=== PATIENT | male | born 1945 | race Caucasian/White ===

== ENCOUNTER → 2016-10-25 | Outpatient (CLI) | payer OTHER ==
--- NOTE | 2016-10-25 16:38 | MRI ---
MR right knee without contrast Indication: Right knee pain and stiffness. Chronic pain. No history of trauma given. Impression: None available. Technique: Multiplanar multi sequence imaging through the right knee without contrast. Findings: There is joint effusion and synovitis. Bone marrow signal is normal. Multi compartment deg enerative change with marginal osteophytes noted. Joint space narrowing is worst in the medial femor otibial joint. The ACL and PCL are intact. There is high signal in the lateral meniscus with fraying of the free ed ge of the posterior horn, without displaced tear. Extensor mechanism is intact. There is complex tear of the posterior horn and body of the medial meniscus see sagittal image [id number] . Near full-thickness radial component of the tear is seen on coronal image 24 with horizontal obliq ue component contacting the inferior surface on coronal image 22. Reactive fluid seen around the intact MCL. The lateral collateral ligamentous complex is intact. There is chondromalacia and cartilage fissuring/thinning of the medial condyle. Chondromalacia and c artilage loss she seen over the patella diffusely worse superiorly and at the median patellar ridge. Subchondral edema is seen at the medial femoral condyle. Nondisplaced subchondral insufficiency frac ture not completely excluded for reactive changes favored. Impression: 1. Complex tear of the posterior horn and body of the medial meniscus with extrusion. 2. Large joint effusion with synovitis. 3. Fraying of the free edge of the posterior horn of the lateral meniscus without displaced tear. 4. Multi compartment degenerative change worse the medial femorotibial compartment with subchondral edema seen. Nondisplaced insufficiency fracture not completely excluded. Radiographic followup recom mended. 5. Semimembranosus tendinosis. Reported By:
== END | disposition home or self-care (01) ==
LOC: RAD 13:42
PROVIDERS: ATTEND Internal Medicine
DX: M25.561 Pain in right knee (principal); S83.231A Complex tear of medial meniscus, current injury, right knee, initial encounter; X58.XXXA Exposure to other specified factors, initial encounter; M65.88 Other synovitis and tenosynovitis, other site; M25.461 Effusion, right knee
CPT/HCPCS: 73721

== ENCOUNTER → 2016-11-15 | Outpatient (CLI) | payer OTHER ==
[2016-11-15 10:37] LABS: BASOPHILS % (AUTO) 0.8 % (0.2-1.0); EOSINOPHILS # (AUTO) 0.1 x10^3/uL (0.0-0.2); EOSINOPHILS % (AUTO) 1.6 % (0.9-2.9); HEMATOCRIT 43.1 % (42.0-54.0); HEMOGLOBIN 14.8 g/dL (13.5-18.0); LYMPHOCYTES # (AUTO) 1.2 X10^3/uL (1.3-2.9); LYMPHOCYTES % (AUTO) 23.8 % (21.0-51.0); MEAN CORPUSCULAR HEMOGLOBIN 30.7 pg (27.0-34.0); MEAN CORPUSCULAR HGB CONC 34.5 g/dL (33.0-35.0); MEAN CORPUSCULAR VOLUME 89.1 fL (80.0-100.0); MEAN PLATELET VOLUME 7.9 fL (7.4-11.0); MONOCYTES # (AUTO) 0.3 x10^3/uL (0.3-0.8); MONOCYTES % (AUTO) 6.4 % (0.0-13.0); NEUTROPHILS # (AUTO) 3.5 x10^3/uL (2.2-4.8); NEUTROPHILS % (AUTO) 67.4 % (42.0-75.0); PLATELET COUNT 200 X10^3/uL (150.0-450.0); RED BLOOD COUNT 4.83 X10^6/uL (4.7-6.0); RED CELL DISTRIBUTION WIDTH 13.4 % (11.6-16.5); WHITE BLOOD COUNT 5.2 X10^3/uL (3.6-10.0)
[2016-11-15 10:50] LABS: ALANINE AMINOTRANSFERASE 39 Units/L (12-78); ALBUMIN 3.5 g/dL (3.4-5.0); ALKALINE PHOSPHATASE 82 Units/L (46-116); ASPARTATE AMINO TRANSFERASE 22 Units/L (15-37); BLOOD UREA NITROGEN 17 mg/dL (7-18); C-REACTIVE PROTEIN < 0.50 mg/L (0-3.0); CALCIUM 8.9 mg/dL (8.5-10.1); CARBON DIOXIDE 30.7 mmol/L (21-32); CHLORIDE 102 mmol/L (98-107); CREATININE 1.31 mg/dL (0.70-1.30); GLUCOSE 101 mg/dL (65-99); SODIUM 138 mmol/L (136-145); TOTAL PROTEIN 7.7 g/dL (6.4-8.2); eGFR BLACK RACES > 60 (>60); eGFR NON BLACK RACES 57 (>60)
[2016-11-15 11:21] LABS: PREALBUMIN 33.7 mg/dL (18-35.7)
[2016-11-15 11:56] LABS: ERYTHROCYTE SEDIMENTATION RATE 12 MM/HOUR (0-15)
== END ==
LOC: LAB 09:45
PROVIDERS: ATTEND Orthopaedic Surgery
DX: M25.561 Pain in right knee (principal); M17.11 Unilateral primary osteoarthritis, right knee; R73.09 Other abnormal glucose
CPT/HCPCS: 36415; 80053; 83036; 84134; 85025; 85652; 86140

== ENCOUNTER → 2017-02-01 | Outpatient (CLI) | payer OTHER ==
[~2017-02-01] MED LIST: NS 100 ML IV 100 ML IV ONE
--- NOTE | 2017-02-01 13:54 | CT ---
HISTORY: Abnormal weight loss Study: CT chest abdomen and pelvis with contrast Comparison: None Technique: Multiple axial images of the chest, abdomen, and pelvis were obtained after the administra tion of IV contrast. Dose reduction techniques including Automated Exposure Control (AEC) and adjust ment of mA and kV were utilized. CT chest findings: There is atherosclerotic disease of the coronary artery is noted. Normal-sized pulmonary arteries. No rmal-sized heart. No pericardial effusion. The aorta appears normal in course and caliber. The lungs are clear without effusion, consolidation, or pneumothorax. Airways are patent. The soft tissues and osseous structures appear intact. CT abdomen and pelvis findings: There are scattered hypodense lesions in the liver suggestive of cysts. The gallbladder is unremarkab le. The spleen, pancreas, kidneys and adrenal glands are unremarkable. No free intraperitoneal air. No evidence of intestinal obstruction or inflammation. Oral contrast alex ches the colon. The appendix is normal. No free fluid is identified. There are degenerative changes of the lumbosacral spine and right hip. There is scattered atheroscler otic plaque seen abdominal aorta without evidence of aneurysm or dissection. No pathologically enlarg ed lymph nodes are identified. The urinary bladder is not well distended but otherwise unremarkable. Mildly enlarged prostate gland. IMPRESSION CHEST: 1. Atherosclerotic disease of the coronary arteries, otherwise negative chest CT. IMPRESSION ABDOMEN/PELVIS: 1. Mildly enlarged prostate gland. 2. Tiny hypodensities in the liver suggestive of cysts. Reported By:
== END | disposition home or self-care (01) | DRG 641 ==
LOC: RAD 09:08
PROVIDERS: ATTEND Internal Medicine
DX: R63.4 Abnormal weight loss (principal); I25.10 Atherosclerotic heart disease of native coronary artery without angina pectoris; N40.0 Benign prostatic hyperplasia without lower urinary tract symptoms
CPT/HCPCS: 71260; 74177; A4222